=== PATIENT | male | born 1960 | race Caucasian/White ===

== ENCOUNTER 2021-07-31 13:00 | Emergency (ER) | payer OTHER, SELFPAY ==
[2021-07-31 13:24] VITALS: BP 161/71; PULSE 113; RESP 18; TEMP 36.8; O2SAT 98
--- NOTE | 2021-07-31 13:39 | ED.URI ---
HPI - URI/Sore Throat General Chief Complaint: Upper Respiratory Infection Stated Complaint: Sinus, Rt Ear Irritation,Sore Throat Time Seen by Provider: 07/31/21 13:39 Source: patient, RN notes reviewed and old records reviewed Mode of arrival: ambulatory Limitations: no limitations History of Present Illness HPI Narrative: 60 year old male [facility] with complaints of sinus congestion especially on the right side of his face with cough, some pressure to the right ear, sore throat, sinus drainage for the past 2- 2 1/2 weeks Patient has been taking Zyrtec and Singulair and has been using the Neti Pot for his sinus congestion and drainage. Patient reports that he has had history of sinus infections in the past. Patient reports that in the past few days he has also been hoarse. Patient has had COVID and influenza shot. MD elicited complaint: cough, sore throat, rhinorrhea, nasal congestion and other (right ear pressue) Pertinent past history: seasonal allergies Onset (ago): week(s) (2) Related Data Home Medications Medication Instructions Recorded Confirmed atenolol 50 mg PO DAILY PRN 07/31/21 07/31/21 cetirizine [Zyrtec] 10 mg PO DAILY 07/31/21 07/31/21 losartan-hydrochlorothiazide 1 tablet PO DAILY 07/31/21 07/31/21 meloxicam 15 mg PO DAILY 07/31/21 07/31/21 montelukast 10 mg PO HS 07/31/21 07/31/21 qc-tw-JB-vit I-fprme-xiqu-zeax 1 tablet PO DAILY 07/31/21 07/31/21 [Ocuvite Eye Plus Multi] vitamin B complex [Super B Complex] 1 cap PO DAILY 07/31/21 07/31/21 Allergies Allergy/AdvReac Type Severity Reaction Status Date / Time Iodinated Contrast Media Allergy Mild Rash Verified 07/31/21 16:40 Sulfa (Sulfonamide Allergy Mild Rash Verified 07/31/21 16:41 Antibiotics) Review of Systems Review of Systems: CONSTITUTIONAL: Denies fever, chills, or sweats. EYES: Denies visual changes, redness, or discharge. ENT: Denies rhinorrhea, congestion, sore throat, or otalgia. CARDIOVASCULAR: Denies chest pain, palpitations, or edema. RESPIRATORY: Denies cough or dyspnea. GASTROINTESTINAL: Denies abdominal pain, nausea, vomiting, or diarrhea. GENITOURINARY: Denies dysuria or hematuria. SKIN: Denies rash or itching. MUSCULOSKELETAL: Denies back pain, joint pain, or myalgia. NEUROLOGIC: Denies headache, numbness, or weakness. PSYCHIATRIC: Denies anxiety or depression. All systems reviewed & are unremarkable except as noted in HPI and below PMFSH Past Medical History Medical History (Updated 07/31/21 @ 16:49 by Shilpa Duran NP) Hyperlipidemia Hypertension Seasonal allergies Surgical History Surgical History (Updated 07/31/21 @ 16:36 by Shilpa Duran NP) [place] teeth extracted Family History Family History (Updated 07/31/21 @ 16:38 by Shilpa Duran NP) Father Hypertension Pancreatic cancer Mother Hypertension Breast cancer Social History Social History (Updated 07/31/21 @ 16:36 by Shilpa Duarn NP) Smoking status: Former smoker Tobacco type: cigarettes Additional smoking assessment comments: quit 2016 Alcohol intake: current Alcohol use details: social Substance use: never Living arrangements: with family Gender identity (if verbalized by the patient): Male Comments At time of signature, agree with nursing past medical, surgical, social and family history. There is no relevant family history pertinent to the presenting complaint Exam Narrative: GENERAL: Well-appearing, well-nourished, and in no acute distress. HEAD: Normocephalic, atraumatic. EYES: PERRLA and EOMI. ENT: Nares red with clear rhinorrhea no epistaxis. Mucous membranes moist.TM's normal with dull light reflex, no drainage noted, Throat red with no exudates or lesions no tonsil swelling post nasal draining noted. NECK: Supple. no lymphadenopathy CHEST: Clear to auscultation. No respiratory distress. SAO2 98% on room air HEART: Regular rate and rhythm. No murmur heard. Normal peripheral pu
== END 2021-07-31 14:08 | disposition home or self-care (01) ==
PROVIDERS: Emergency Provider Registered Nurse
DX: J01.40 Acute pansinusitis, unspecified (principal); Z87.891 Personal history of nicotine dependence; E78.5 Hyperlipidemia, unspecified; I10 Essential (primary) hypertension
CPT/HCPCS: 99203; G0463